=== PATIENT | female | born 1955 | race Hispanic/Latino ===

== ENCOUNTER 2018-07-24 11:59 | Emergency (ER) | payer MEDICAID ==
[2018-07-24 12:28] LABS: BASOPHILS % (AUTO) 0.3 % (0.0-5.0); EOSINOPHILS % (AUTO) 0.6 % (0.0-8.0); HEMATOCRIT 40.4 % (36-48); LYMPHOCYTES % (AUTO) 16.2 % (21.0-51.0); MEAN CORPUSCULAR HEMOGLOBIN 31.3 pg (27.0-33.0); MEAN CORPUSCULAR HGB CONC 33.6 g/dL (32.0-36.0); MONOCYTES % (AUTO) 8.3 % (3.0-13.0); NEUTROPHILS % (AUTO) 74.6 % (40.0-77.0); NUCLEATED RED BLOOD CELLS 0.1 % (0.0-0.19); PLATELET COUNT (AUTO) 225 K/uL (130-400); RED BLOOD CELL COUNT(AUTO) 4.35 MIL/uL (4.00-5.50); RED CELL DISTRIBUTION WIDTH 12.6 % (11.0-15.5)
[2018-07-24] MEDS ORDERED: SODIUM CHLORIDE 0.9% 1000ML 1,000 ML IV ONE (12:35)
[2018-07-24] MEDS ORDERED: KETOROLAC TROMETHAMINE 30MG/ML ONE (12:35)
[2018-07-24] MEDS ORDERED: ONDANSETRON HCL 4 MG/2 ML VIAL ONE (12:35)
[2018-07-24 12:36] LABS: CREATININE 0.8 mg/dL (0.5-1.5); POTASSIUM 3.7 mmol/L (3.5-5.1)
[2018-07-24 12:43] LABS: ALBUMIN 4.1 g/dL (3.5-5.0); BILIRUBIN,DIRECT 0.2 mg/dL (0.0-0.3); BILIRUBIN,TOTAL 0.7 mg/dL (0.2-1.0); TOTAL PROTEIN, SERUM 8.1 g/dL (6.0-8.3)
== END 2018-07-24 15:09 | disposition home or self-care (01) ==
LOC: EDH 11:59
DX: R11.2 Nausea with vomiting, unspecified (principal); R10.13 Epigastric pain; R63.0 Anorexia; E11.9 Type 2 diabetes mellitus without complications; F41.9 Anxiety disorder, unspecified; I10 Essential (primary) hypertension; E07.9 Disorder of thyroid, unspecified; Z90.710 Acquired absence of both cervix and uterus
CPT/HCPCS: 36415; 74176; 80048; 80076; 82550; 83690; 84484; 85025; 93005; 96361; 96374; 96375; 99284; J1885; J2405; J7030

== ENCOUNTER 2020-09-27 20:43 | Emergency (ER) | payer OTHER, MEDICARE ==
[2020-09-27] MEDS ORDERED: KETOROLAC TROMETHAMINE 60 MG/2 ML VIAL ONE (21:22)
[2020-09-27] MEDS ORDERED: HYDROCODONE/ACETAMINOPHEN 10/325 MG TAB ONE (21:22)
== END 2020-09-27 22:13 | disposition home or self-care (01) ==
LOC: EDH 20:43
DX: S52.512A Displaced fracture of left radial styloid process, initial encounter for closed fracture (principal); S52.612A Displaced fracture of left ulna styloid process, initial encounter for closed fracture; W01.0XXA Fall on same level from slipping, tripping and stumbling without subsequent striking against object, initial encounter; Y93.H2 Activity, gardening and landscaping; Y92.017 Garden or yard in single-family (private) house as the place of occurrence of the external cause; Y99.8 Other external cause status
CPT/HCPCS: 29125; 73110; 73130; 96372; 99283; J1885

== ENCOUNTER 2021-12-07 08:05 | Day surgery (SDC) | payer OTHER, MEDICARE ==
[2021-12-05 12:33] LABS: BASOPHILS % (AUTO) 0.3 % (0.0-5.0); EOSINOPHILS % (AUTO) 3.5 % (0.0-8.0); HEMATOCRIT 44.6 % (36-48); LYMPHOCYTES % (AUTO) 30.2 % (21.0-51.0); MEAN CORPUSCULAR HEMOGLOBIN 29.9 pg (27.0-33.0); MEAN CORPUSCULAR HGB CONC 31.8 g/dL (32.0-36.0); MEAN CORPUSCULAR VOLUME 93.9 fL (79-99); MONOCYTES % (AUTO) 8.3 % (3.0-13.0); NEUTROPHILS % (AUTO) 57.4 % (40.0-77.0); PLATELET COUNT (AUTO) 196 K/uL (130-400); RED BLOOD CELL COUNT(AUTO) 4.75 MIL/uL (4.00-5.50); RED CELL DISTRIBUTION WIDTH 14.6 % (11.0-15.5)
[2021-12-05 12:54] LABS: CREATININE 0.7 mg/dL (0.5-1.5); POTASSIUM 4.3 mmol/L (3.5-5.1)
[2021-12-06 10:32] VITALS: BP 177/89
[~2021-12-07] VITALS: Ht 154.9 cm; Wt 79.1 kg
[2021-12-07] VITALS (23 sets, daily range): BP systolic 99–136; BP diastolic 52–79
[~2021-12-07 08:05] MED LIST: CEFAZOLIN SODIUM 2 GM VIAL IV SCH; DULO60CA64 PO; FERR-72 PO; GLIP5TAB11 PO; LEVO100T12 PO; LINA1TAB PO; MIRT-22 PO; PRAV40TA3 PO; ROPI0.5T7 PO; VALS80TA30 PO
[2021-12-07] MEDS ORDERED: 0.9%NACL 1000ML 1,000 ML IV ONE (08:35)
[2021-12-07] MEDS ORDERED: CEFAZOLIN SODIUM 1 GM VIAL ONE (08:35)
[2021-12-07] MEDS ORDERED: EPINEPHRINE 1 MG/ML 30ML VIAL IJ ONE ×2 (11:21→13:08)
[2021-12-07] MEDS ORDERED: FENTANYL CITRATE PF 50 MCG/1 ML 2ML VIAL ONE ×2 (11:39→11:40)
[2021-12-07] MEDS ORDERED: MIDAZOLAM HCL 1 MG/ML 2ML VIAL ONE (11:39)
[2021-12-07] MEDS ORDERED: ROPIVACAINE 0.5% 5MG/ML 30ML IJ ONE (11:52)
[2021-12-07] MEDS ORDERED: KETAMINE 50MG/ML SYRINGE 50 MG/ML DISP.SYRIN IV ONE (11:52)
[2021-12-07] MEDS ORDERED: PROPOFOL 10 MG/ML 20ML VIAL IV ONE (11:54)
[2021-12-07] MEDS ORDERED: LIDOCAINE PF 100MG/5ML (2%) SYRINGE 5ML ONE (11:54)
[2021-12-07] MEDS ORDERED: ROCURONIUM 10MG/1ML SYR 10 MG/ML ML ONE ×2 (11:55→13:02)
[2021-12-07] MEDS ORDERED: HYDR-4060 PO (14:59)
[2021-12-07] MEDS ORDERED: CEPH500B PO (14:59)
[2021-12-07] MEDS ORDERED: IBUP-2070 PO (14:59)
[2021-12-07] MEDS ORDERED: ONDANSETRON 4MG INJ ONE (15:07)
[2021-12-07] MEDS ORDERED: NEOSTIGMINE 5MG/5ML SYR IV ONE (15:07)
[2021-12-07] MEDS ORDERED: GLYCOPYRROLATE 1 MG/5 ML SYRINGE ONE (15:07)
[2021-12-07] MEDS ORDERED: MEPERIDINE-PF 25 MG/ML SYG ONE ×2 (15:44→15:57)
== END 2021-12-07 17:40 | disposition home or self-care (01) ==
LOC: DAH 08:05
PROVIDERS: ATTEND Orthopaedic Surgery
DX: S46.011A Strain of muscle(s) and tendon(s) of the rotator cuff of right shoulder, initial encounter (principal); S46.211A Strain of muscle, fascia and tendon of other parts of biceps, right arm, initial encounter; M75.51 Bursitis of right shoulder; M19.011 Primary osteoarthritis, right shoulder; G89.29 Other chronic pain; I10 Essential (primary) hypertension; E11.9 Type 2 diabetes mellitus without complications; E66.01 Morbid (severe) obesity due to excess calories; Z98.890 Other specified postprocedural states; Z98.891 History of uterine scar from previous surgery; Z79.01 Long term (current) use of anticoagulants; Z79.84 Long term (current) use of oral hypoglycemic drugs; Z79.899 Other long term (current) drug therapy; X58.XXXA Exposure to other specified factors, initial encounter; Y93.89 Activity, other specified; Y92.89 Other specified places as the place of occurrence of the external cause
CPT/HCPCS: 29826; 29827; 36415; 64415; 76942; 80048; 82948 ×2; 85025; 87635; A4215; A4221; A4222; A4223; A4565; A4600; A4615; A4649 ×4; A4663; A6204; C1713 ×3; C9803; G0168; J0171 ×2; J0690; J2001; J2175 ×2; J2250; J2405; J2704; J2710; J2795; J3010 ×2; J3490 ×2; J7030 ×2

== ENCOUNTER 2022-05-14 06:28 | Observation (INO) | payer OTHER, MEDICARE ==
[2022-05-11 13:56] LABS: BASOPHILS % (AUTO) 0.1 % (0.0-5.0); EOSINOPHILS % (AUTO) 0.2 % (0.0-8.0); HEMATOCRIT 41.3 % (36-48); LYMPHOCYTES % (AUTO) 17.2 % (21.0-51.0); MEAN CORPUSCULAR HEMOGLOBIN 31.7 pg (27.0-33.0); MEAN CORPUSCULAR HGB CONC 33.2 g/dL (32.0-36.0); MEAN CORPUSCULAR VOLUME 95.6 fL (79-99); MONOCYTES % (AUTO) 4.9 % (3.0-13.0); NEUTROPHILS % (AUTO) 76.6 % (40.0-77.0); PLATELET COUNT (AUTO) 214 K/uL (130-400); RED BLOOD CELL COUNT(AUTO) 4.32 MIL/uL (4.00-5.50); RED CELL DISTRIBUTION WIDTH 12.5 % (11.0-15.5); WHITE BLOOD COUNT (AUTO) 9.4 K/uL (4.8-10.8)
[2022-05-11 14:05] LABS: INR 0.93 (0.85-1.15); PROTHROMBIN TIME 10.2 SEC (9.6-11.6)
[2022-05-11 14:07] LABS: PARTIAL THROMBOPLASTIN TIME 24.3 SEC (26.3-35.5)
[2022-05-11 14:11] LABS: APPEARANCE,URINE CLEAR (CLEAR); BILIRUBIN,URINE NEGATIVE (NEGATIVE); COLOR,URINE LIGHT-YELLOW (YELLOW); GLUCOSE, URINE (UA) NEGATIVE (NEGATIVE); KETONES,URINE NEGATIVE (NEGATIVE); LEUKOCYTE ESTERASE ,URINE NEGATIVE Leu/uL (NEGATIVE); NITRATE,URINE NEGATIVE (NEGATIVE); OCCULT BLOOD,URINE NEGATIVE (NEGATIVE); PH,URINE 5.5 (5.0-8.0); PROTEIN,URINE NEGATIVE (NEGATIVE); UROBILINOGEN,URINE 0.2 mg/dL (0.2-1.0)
[2022-05-11 14:18] LABS: ALBUMIN 3.5 g/dL (3.5-5.0); CARBON DIOXIDE 33 mmol/L (21-32); CHLORIDE 103 mmol/L (101-111); CREATININE 0.8 mg/dL (0.5-1.5); GLOMERULAR FILTR. RATE CALC 76 mL/min (>60); GLUCOSE,RANDOM 120 mg/dL (70-105); POTASSIUM 4.1 mmol/L (3.5-5.1); SODIUM SERUM 138 mmol/L (136-145); UREA NITROGEN, BLOOD 20 mg/dL (7-18)
[2022-05-11 14:20] LABS: CRP QUANTITATIVE < 2.00 mg/L (0.00-9.0)
[2022-05-11 16:53] VITALS: BP 145/71
[~2022-05-14] VITALS: Ht 154.9 cm; Wt 77.0 kg
[2022-05-14] VITALS (28 sets, daily range): BP systolic 112–146; BP diastolic 58–79
[2022-05-14] MEDS: CEFAZOLIN SODIUM 1 GM VIAL IVP SCH ×3 (05:00→16:51)
[~2022-05-14 06:28] MED LIST changes: -CEFAZOLIN SODIUM 2 GM VIAL IV SCH; -MIRT-22 PO; +PANT40TA54 PO; +PRED20TA3 PO; -ROPI0.5T7 PO
[2022-05-14] MEDS ORDERED: 0.9%NACL 1000ML 1,000 ML IV ONE (06:57)
[2022-05-14] MEDS ORDERED: GLYCOPYRROLATE 1 MG/5 ML SYRINGE ONE (08:55)
[2022-05-14] MEDS ORDERED: PROPOFOL 10 MG/ML 20ML VIAL IV ONE (08:55)
[2022-05-14] MEDS ORDERED: NEOSTIGMINE 5MG/5ML SYR IV ONE (08:56)
[2022-05-14] MEDS ORDERED: MIDAZOLAM HCL 1 MG/ML 2ML VIAL ONE (08:56)
[2022-05-14] MEDS ORDERED: EPHEDRINE SULFATE 50 MG/ML AMPULE ONE (08:56)
[2022-05-14] MEDS ORDERED: ONDANSETRON 4MG INJ ONE (08:57)
[2022-05-14] MEDS ORDERED: PHENYLEPHRINE HCL 10 MG/ML 1ML VIAL IV ONE (08:57)
[2022-05-14] MEDS ORDERED: ROCURONIUM 10MG/1ML SYR 10 MG/ML ML ONE ×2 (08:58→09:55)
[2022-05-14] MEDS ORDERED: FENTANYL CITRATE PF 50 MCG/1 ML 2ML VIAL ONE ×2 (08:59→09:55)
[2022-05-14] MEDS ORDERED: KETOROLAC 30MG VIAL (30MG/ML) ONE (08:59)
[2022-05-14] MEDS ORDERED: SUGAMMADEX SODIUM 200 MG/2 ML VIAL IV ONE (11:07)
[2022-05-14] MEDS ORDERED: DiphenhydrAMINE HCL 50 MG/ML VIAL IVP PRN (11:30)
[2022-05-14] MEDS ORDERED: KCL 20 MEQ ERTAB PO PRN (11:30)
[2022-05-14] MEDS ORDERED: LIDOCAINE HCL-MPF 1% 2ML VIAL IV PRN (11:30)
[2022-05-14] MEDS ORDERED: POTASSIUM CHLORIDE 20MEQ/100ML 100 ML IV PRN (11:30)
[2022-05-14] MEDS ORDERED: FE FUMARATE/FA/MV, MIN COMB#15 1 TAB PO PRN (11:30)
[2022-05-14] MEDS ORDERED: TRAMADOL HCL 50 MG TABLET PO PRN (11:30)
[2022-05-14] MEDS ORDERED: ONDANSETRON 4MG INJ IVP PRN (11:30)
[2022-05-14] MEDS ORDERED: POTASSIUM CHLORIDE 10% ELIXIR 20 MEQ/15 ML UDCUP PO PRN (11:30)
[2022-05-14] MEDS ORDERED: CALCIUM CARB 500MG PO PRN (11:30)
[2022-05-14] MEDS: KETOROLAC 15MG/ML VIAL (15MG/ML) IV SCH ×2 (11:30→19:44)
[2022-05-14] MEDS: 0.9%NACL 1000ML 1,000 ML IV SCH ×3 (13:18→22:36)
[2022-05-14] MEDS: DOCUSATE SODIUM 100 MG CAP PO SCH (19:44)
[2022-05-14] MEDS: JENTADUETO PO SCH (19:44)
[2022-05-14] MEDS: GLIPIZIDE 5 MG TABLET PO SCH (19:44)
[2022-05-15] MEDS: CEFAZOLIN SODIUM 1 GM VIAL IVP SCH (00:37)
[2022-05-15] MEDS: HYDROCODONE/ACETAMINOPHEN 5/325 MG TAB PO PRN ×3 (02:58→13:07)
[2022-05-15] MEDS: KETOROLAC 15MG/ML VIAL (15MG/ML) IV SCH (03:46)
[2022-05-15] MEDS ORDERED: CYCLOBENZAPRINE HCL 10 MG TABLET ONE (03:59)
[2022-05-15] MEDS ORDERED: CYCLOBENZAPRINE HCL 10 MG TABLET PO PRN (04:00)
[2022-05-15 04:35] VITALS: BP 124/66
[2022-05-15 04:50] LABS: HEMATOCRIT 31.8 % (36-48); MEAN CORPUSCULAR HEMOGLOBIN 31.7 pg (27.0-33.0); MEAN CORPUSCULAR VOLUME 96.1 fL (79-99); RED BLOOD CELL COUNT(AUTO) 3.31 MIL/uL (4.00-5.50); RED CELL DISTRIBUTION WIDTH 12.9 % (11.0-15.5); WHITE BLOOD COUNT (AUTO) 12.6 K/uL (4.8-10.8)
[2022-05-15 05:02] LABS: CREATININE 0.8 mg/dL (0.5-1.5); POTASSIUM 3.5 mmol/L (3.5-5.1)
[2022-05-15] MEDS ORDERED: PANTOPRAZOLE 40 MG TAB DR ONE (06:14)
[2022-05-15] MEDS ORDERED: LEVOTHYROXINE 100 MCG TABLET ONE (06:27)
[2022-05-15] MEDS ORDERED: PANTOPRAZOLE 40 MG TAB DR PO SCH (07:30)
[2022-05-15] MEDS ORDERED: LEVOTHYROXINE 100 MCG TABLET PO SCH (07:30)
[2022-05-15 07:51] VITALS: BP 116/56
[2022-05-15] MEDS: GLIPIZIDE 5 MG TABLET PO SCH (08:55)
[2022-05-15] MEDS: JENTADUETO PO SCH (08:55)
[2022-05-15] MEDS: DOCUSATE SODIUM 100 MG CAP PO SCH (08:55)
[2022-05-15] MEDS ORDERED: LOSARTAN 50 MG TABLET PO SCH (09:00)
[2022-05-15] MEDS ORDERED: ATORVASTATIN 10 MG TABLET PO SCH (09:00)
[2022-05-15] MEDS ORDERED: POLYETHYLENE GLYCOL 3350 17 GM POWD.PACK PO SCH (09:00)
[2022-05-15] MEDS ORDERED: PREDNISONE 20 MG TABLET PO SCH (09:00)
[2022-05-15] MEDS ORDERED: DULOXETINE HCL 30 MG CAP PO SCH (09:00)
[2022-05-15] MEDS ORDERED: FERROUS SULFATE 325 MG TABLET.DR PO SCH (09:00)
[2022-05-15 11:00] VITALS: BP 121/63
[2022-05-15] MEDS ORDERED: CYCL-309 PO (12:22)
[2022-05-15] MEDS ORDERED: HYDR-4060 PO (12:22)
[2022-05-15] MEDS ORDERED: DOCU-116 PO (12:22)
[2022-05-17] MEDS ORDERED: BISACODYL 10 MG SUPP.RECT RC PRN (11:30)
== END 2022-05-15 15:19 | disposition home or self-care (01) ==
LOC: DAH 06:28 → DAHIP 06:29 → DAH 06:29 → 4DH 13:00
PROVIDERS: ADMIT Student in an Organized Health Care Education/Training Program; ATTEND Student in an Organized Health Care Education/Training Program
DX: M75.101 Unspecified rotator cuff tear or rupture of right shoulder, not specified as traumatic (principal); Z20.822 Contact with and (suspected) exposure to COVID-19; M12.811 Other specific arthropathies, not elsewhere classified, right shoulder; M25.511 Pain in right shoulder; M25.612 Stiffness of left shoulder, not elsewhere classified; G89.29 Other chronic pain; R29.898 Other symptoms and signs involving the musculoskeletal system; I10 Essential (primary) hypertension; E11.9 Type 2 diabetes mellitus without complications; E78.5 Hyperlipidemia, unspecified; E03.9 Hypothyroidism, unspecified; D64.9 Anemia, unspecified; K29.70 Gastritis, unspecified, without bleeding; M75.100 Unspecified rotator cuff tear or rupture of unspecified shoulder, not specified as traumatic; D62 Acute posthemorrhagic anemia; Z79.899 Other long term (current) drug therapy; Z98.890 Other specified postprocedural states
CPT/HCPCS: 82040; 80048 ×2; 85025; 85610; 85730; 87088; 84134; 86140; 87426; 81003; 36415 ×2; 87641; 64415; 23472; 96365; 96375; 82948 ×5; 73020; 73030; 97161; 97530 ×3; 97039 ×2; 96376; 85027; G0378 ×26; A4663; J7030 ×2; A4565; C1776; J3010 ×2; J0690 ×3; J3490 ×2; J2250; J2704; J2405; J1885 ×3; G0168; A4930; A6254; A5120; A4215; A4223; A4222; A4221; A4600 ×2; J2370; J2710

== ENCOUNTER 2022-11-08 18:59 | Emergency (ER) | payer OTHER, MEDICARE ==
[~2022-11-08] VITALS: Ht 154.9 cm; Wt 73.9 kg
[~2022-11-08 18:59] MED LIST changes: +CYCL5TAB PO; +DOCU-116 PO; -FERR-72 PO; -GLIP5TAB11 PO; +HYDR-4060 PO; +ROPI0.5T7 PO
[2022-11-08] MEDS ORDERED: IBUP-1493 PO (20:50)
[2022-11-08 22:28] VITALS: BP 128/62
== END 2022-11-08 22:31 | disposition home or self-care (01) ==
LOC: EDH 18:59
DX: M25.461 Effusion, right knee (principal); E11.9 Type 2 diabetes mellitus without complications; E78.00 Pure hypercholesterolemia, unspecified; I10 Essential (primary) hypertension; Z79.1 Long term (current) use of non-steroidal anti-inflammatories (NSAID); Z79.52 Long term (current) use of systemic steroids; Z79.84 Long term (current) use of oral hypoglycemic drugs; Z79.899 Other long term (current) drug therapy; Z90.49 Acquired absence of other specified parts of digestive tract
CPT/HCPCS: 73562